=== PATIENT | female | born 1940 | race African-American/Black ===

== ENCOUNTER 2016-06-18 15:01 | Emergency (ER) | payer BC, MEDICARE ==
[~2016-06-18] VITALS: Ht 160 cm; Wt 70.0 kg
[2016-06-18] MEDS ORDERED: TETRACAINE 0.5% OPHTH DROPS 4ML LEFTEYE ONE (18:15)
[2016-06-18] MEDS ORDERED: FLUORESCEIN SODIUM 1MG/STRIP LEFTEYE ONE (18:15)
[2016-06-18] MEDS ORDERED: SODIUM CHLORIDE 0.9% 1,000 ML IV ONE (18:15)
[2016-06-18 19:15] VITALS: BP 116/75
== END 2016-06-18 19:35 | disposition left against medical advice (07) ==
LOC: ER 15:01
DX: H57.12 Ocular pain, left eye (principal); H53.8 Other visual disturbances; T75.89XA Other specified effects of external causes, initial encounter; I10 Essential (primary) hypertension; E78.00 Pure hypercholesterolemia, unspecified; E11.9 Type 2 diabetes mellitus without complications; X58.XXXA Exposure to other specified factors, initial encounter; Y93.89 Activity, other specified; Y92.89 Other specified places as the place of occurrence of the external cause; Y99.8 Other external cause status
CPT/HCPCS: 96360; 99284; J7030